=== PATIENT | male | born 1950 | race Caucasian/White ===

== ENCOUNTER 2018-09-26 09:16 | Inpatient (IN) | payer OTHER, BC ==
[2018-09-26 09:59] LABS: ADD MAN DIFF? NO
[2018-09-26 10:01] LABS: BASOPHILS % 0.3 % (0.0-2.0); EOSINOPHILS % 0.4 % (0.0-7.0); HEMATOCRIT 31.2 % (42.0-52.0); HEMOGLOBIN 11.2 g/dl (14.0-18.0); LYMPHOCYTES % 10.7 % (15.0-51.0); MEAN CORPUSCULAR HEMOGLOBIN 30.2 pg (29.0-33.0); MEAN CORPUSCULAR HGB CONC 35.9 g/dl (32.0-37.0); MEAN CORPUSCULAR VOLUME 84.1 fl (82.0-101.0); MEAN PLATELET VOLUME 8.6 fl (7.4-10.4); MONOCYTE # 0.9 10^3/ul (0.3-0.9); MONOCYTES % 9.1 % (0.0-11.0); NEUTROPHIL # 7.4 10^3/ul (1.6-7.5); PLATELET COUNT 248 10^3/UL (140-415); RED BLOOD COUNT 3.71 10^6/ul (4.70-6.10); RED CELL DISTRIBUTION WIDTH 12.7 % (11.5-14.5)
[2018-09-26 10:01] LABS: WHITE BLOOD COUNT 9.4 10^3/ul (4.8-10.8)
[2018-09-26 10:19] LABS: ALANINE AMINOTRANSFERASE 17 IU/L (13-69); ALBUMIN 4.3 g/dl (3.3-4.9); ALBUMIN/GLOBULIN RATIO 1.48; ALKALINE PHOSPHATASE 135 IU/L (42-121); ANION GAP 17 (5-13); ASPARTATE AMINO TRANSFERASE 17 IU/L (15-46); BILIRUBIN,INDIRECT 0.6 mg/dl (0-1.1); BILIRUBIN,TOTAL 0.6 mg/dl (0.2-1.3); BLOOD UREA NITROGEN 11 mg/dl (7-20); CALCIUM 8.6 mg/dl (8.4-10.2); CARBON DIOXIDE 24 mmol/L (21-31); CHLORIDE 86 mmol/L (97-110); CREATININE 0.63 mg/dl (0.61-1.24); Estimated GFR > 60 mL/min (>60); GLUCOSE 191 mg/dl (70-220); POTASSIUM 4.5 mmol/L (3.5-5.1); SODIUM 127 mmol/L (135-144); TOTAL PROTEIN 7.2 g/dl (6.1-8.1)
[2018-09-26 10:31] LABS: B-TYPE NATRIURETIC PEPTIDE 1070 PG/ML (0-125); TROPONIN-I < 0.012 ng/ml (0.000-0.120)
[2018-09-26] MEDS: CEFTRIAXONE 1 GM/50 ML (PMX) 50 ML IVPB (11:14)
[2018-09-26] MEDS: FUROSEMIDE 40 MG INJ IV ×2 (11:14→18:02)
[2018-09-26] MEDS: AZITHROMYCIN 500MG/NS (PMX) 250 ML IV (12:34)
[2018-09-26] MEDS ORDERED: ONDANSETRON 4 MG INJ IV ×2 (13:00→14:00)
[2018-09-26] MEDS ORDERED: ACETAMINOPHEN 325 MG TAB PO ×2 (13:00→14:00)
[2018-09-26] MEDS ORDERED: HYDROCODONE/APAP (5/325) TAB PO (14:00)
[2018-09-26] MEDS ORDERED: NACL 0.9% 3 ML SYG IV (14:00)
[2018-09-26] MEDS ORDERED: DOCUSATE SODIUM 100 MG CAP PO (14:00)
[2018-09-26] MEDS ORDERED: CEFTRIAXONE 1 GM/50 ML (PMX) 50 ML IVPB (14:00)
[2018-09-26 15:51] LABS: CREATINE KINASE 67 IU/L (23-200)
[2018-09-26 16:04] LABS: CK INDEX 1.8; CK-MB 1.23 ng/ml (0.0-2.4); TROPONIN-I < 0.012 ng/ml (0.000-0.120)
[2018-09-26] MEDS: INSULIN ASPART [NOVOLOG] 3 ML PEN SC ×3 (17:40→21:10)
[2018-09-26] MEDS: INSULIN GLARGINE [LANTus] (100 UNITS/ML) SYG SC ×2 (20:00→22:00)
[2018-09-26] MEDS: ATORVASTATIN 80 MG TAB PO (21:05)
[2018-09-26] MEDS: METOPROLOL 50 MG TAB PO (21:05)
[2018-09-26 22:06] LABS: CREATINE KINASE 89 IU/L (23-200)
[2018-09-26 22:18] LABS: CK INDEX 1.5; TROPONIN-I < 0.012 ng/ml (0.000-0.120)
[2018-09-26] MEDS: OXYMETAZOLINE 0.05% 15 ML NAS SPRAY NASAL (22:56)
[2018-09-26] MEDS: FLUTICASONE 0.05% 16 GM NAS SPRAY NASAL (22:56)
[2018-09-27] MEDS: ACCU-CHEK XX (02:00)
[2018-09-27] MEDS: FUROSEMIDE 40 MG INJ IV ×2 (05:36→17:13)
[2018-09-27 06:39] LABS: ADD MAN DIFF? NO
[2018-09-27 06:50] LABS: BASOPHILS % 0.3 % (0.0-2.0); EOSINOPHILS # 0.1 10^3/ul (0.0-0.5); EOSINOPHILS % 0.9 % (0.0-7.0); HEMATOCRIT 29.9 % (42.0-52.0); HEMOGLOBIN 10.7 g/dl (14.0-18.0); LYMPHOCYTES % 11.4 % (15.0-51.0); MEAN CORPUSCULAR HGB CONC 35.8 g/dl (32.0-37.0); MEAN CORPUSCULAR VOLUME 83.8 fl (82.0-101.0); MONOCYTE # 1.1 10^3/ul (0.3-0.9); MONOCYTES % 12.1 % (0.0-11.0); NEUTROPHIL # 6.6 10^3/ul (1.6-7.5); NEUTROPHILS % 74.8 % (39.0-77.0); PLATELET COUNT 245 10^3/UL (140-415); RED BLOOD COUNT 3.57 10^6/ul (4.70-6.10); RED CELL DISTRIBUTION WIDTH 12.9 % (11.5-14.5)
[2018-09-27 06:50] LABS: WHITE BLOOD COUNT 8.8 10^3/ul (4.8-10.8)
[2018-09-27 07:33] LABS: ALANINE AMINOTRANSFERASE 26 IU/L (13-69); ALBUMIN 3.7 g/dl (3.3-4.9); ALBUMIN/GLOBULIN RATIO 1.37; ALKALINE PHOSPHATASE 138 IU/L (42-121); ANION GAP 13 (5-13); ASPARTATE AMINO TRANSFERASE 21 IU/L (15-46); BILIRUBIN,INDIRECT 0.5 mg/dl (0-1.1); BILIRUBIN,TOTAL 0.5 mg/dl (0.2-1.3); BLOOD UREA NITROGEN 16 mg/dl (7-20); CALCIUM 8.4 mg/dl (8.4-10.2); CARBON DIOXIDE 27 mmol/L (21-31); CHLORIDE 88 mmol/L (97-110); CHOL/HDL RATIO 2.3 RATIO; CHOLESTEROL 105 mg/dl (100-200); CREATININE 0.72 mg/dl (0.61-1.24); Estimated GFR > 60 mL/min (>60); GLUCOSE 163 mg/dl (70-220); HDL CHOLESTEROL 44 mg/dl (31-75); LDL CHOLESTEROL,CALCULATED 52 mg/dl; MAGNESIUM 1.9 mg/dl (1.7-2.5); POTASSIUM 4.2 mmol/L (3.5-5.1); SODIUM 128 mmol/L (135-144); TOTAL PROTEIN 6.4 g/dl (6.1-8.1); TRIGLYCERIDES 45 mg/dl (0-149)
[2018-09-27] MEDS: INSULIN ASPART [NOVOLOG] 3 ML PEN SC ×7 (07:52→21:00)
[2018-09-27] MEDS: LISINOPRIL 20 MG TAB PO (08:09)
[2018-09-27] MEDS: ASPIRIN 81 MG TAB PO (08:09)
[2018-09-27] MEDS: FLUTICASONE 0.05% 16 GM NAS SPRAY NASAL ×2 (08:10→21:06)
[2018-09-27] MEDS: METOPROLOL 50 MG TAB PO ×2 (08:10→21:06)
[2018-09-27] MEDS: ENOXAPARIN 40 MG/0.4 ML SYG SC (08:14)
[2018-09-27] MEDS ORDERED: AZITHROMYCIN 500 MG in SOD CHLORIDE 0.9% 250 ML IVPB (09:00)
[2018-09-27] MEDS: CEFTRIAXONE 1 GM/50 ML (PMX) 50 ML IVPB (11:03)
[2018-09-27] MEDS: AZITHROMYCIN 500 MG in SOD CHLORIDE 0.9% 250 ML IVPB (13:34)
[2018-09-27 14:37] LABS: OSMOLALITY 258 mOsm/kg (280-295)
[2018-09-27 16:15] LABS: OSMOLALITY,URINE 487 mOsm/kg (250-1200)
[2018-09-27 16:21] LABS: SODIUM,URINE RANDOM < 13 mmol/L (30-90)
[2018-09-27] MEDS: INSULIN GLARGINE [LANTus] (100 UNITS/ML) SYG SC (21:19)
[2018-09-27] MEDS: ATORVASTATIN 40 MG TAB PO (21:19)
[2018-09-28] MEDS: ACCU-CHEK XX ×2 (02:00)
[2018-09-28] MEDS: FUROSEMIDE 40 MG INJ IV ×2 (06:21→14:24)
[2018-09-28 07:05] LABS: ADD MAN DIFF? NO
[2018-09-28 07:10] LABS: BASOPHILS % 0.5 % (0.0-2.0); EOSINOPHILS # 0.1 10^3/ul (0.0-0.5); EOSINOPHILS % 1.4 % (0.0-7.0); HEMOGLOBIN 10.5 g/dl (14.0-18.0); LYMPHOCYTES # 1.6 10^3/ul (0.8-2.9); LYMPHOCYTES % 18.8 % (15.0-51.0); MEAN CORPUSCULAR HGB CONC 32.8 g/dl (32.0-37.0); MEAN CORPUSCULAR VOLUME 94.4 fl (82.0-101.0); MONOCYTE # 0.9 10^3/ul (0.3-0.9); MONOCYTES % 11.1 % (0.0-11.0); NEUTROPHIL # 5.7 10^3/ul (1.6-7.5); NEUTROPHILS % 67.8 % (39.0-77.0); PLATELET COUNT 236 10^3/UL (140-415); RED BLOOD COUNT 3.39 10^6/ul (4.70-6.10)
[2018-09-28 07:10] LABS: WHITE BLOOD COUNT 8.4 10^3/ul (4.8-10.8)
[2018-09-28 07:50] LABS: ANION GAP 10 (5-13); BLOOD UREA NITROGEN 20 mg/dl (7-20); CALCIUM 8.4 mg/dl (8.4-10.2); CARBON DIOXIDE 26 mmol/L (21-31); CHLORIDE 91 mmol/L (97-110); CREATININE 0.65 mg/dl (0.61-1.24); Estimated GFR > 60 mL/min (>60); GLUCOSE 93 mg/dl (70-220); POTASSIUM 3.8 mmol/L (3.5-5.1); SODIUM 127 mmol/L (135-144)
[2018-09-28] MEDS: INSULIN ASPART [NOVOLOG] 3 ML PEN SC ×4 (07:55→11:29)
[2018-09-28] MEDS ORDERED: FUROSEMIDE 40 MG TAB PO (08:00)
[2018-09-28] MEDS: ASPIRIN 81 MG TAB PO (08:12)
[2018-09-28] MEDS: LISINOPRIL 20 MG TAB PO (08:12)
[2018-09-28] MEDS: METOPROLOL 50 MG TAB PO (08:13)
[2018-09-28] MEDS: ENOXAPARIN 40 MG/0.4 ML SYG SC (08:19)
[2018-09-28] MEDS: CEFTRIAXONE 1 GM/50 ML (PMX) 50 ML IVPB (11:18)
[2018-09-28] MEDS: AZITHROMYCIN 500 MG in SOD CHLORIDE 0.9% 250 ML IVPB (12:07)
== END 2018-09-28 15:33 | disposition home or self-care (01) | DRG 291 ==
LOC: E/R 09:16 → TEL 12:54
DX: I11.0 Hypertensive heart disease with heart failure (principal); J18.9 Pneumonia, unspecified organism; E87.1 Hypo-osmolality and hyponatremia; I50.43 Acute on chronic combined systolic (congestive) and diastolic (congestive) heart failure; I42.9 Cardiomyopathy, unspecified; D64.9 Anemia, unspecified; E11.9 Type 2 diabetes mellitus without complications; Z95.1 Presence of aortocoronary bypass graft; E66.9 Obesity, unspecified; I25.10 Atherosclerotic heart disease of native coronary artery without angina pectoris; E78.5 Hyperlipidemia, unspecified; E02 Subclinical iodine-deficiency hypothyroidism; I25.2 Old myocardial infarction; Z68.34 Body mass index [BMI] 34.0-34.9, adult; Z79.4 Long term (current) use of insulin; Z79.84 Long term (current) use of oral hypoglycemic drugs; Z79.82 Long term (current) use of aspirin; Z91.19 Patient's noncompliance with other medical treatment and regimen; Z98.61 Coronary angioplasty status
CPT/HCPCS: 36415; 71045; 71250; 80048; 80053; 80061; 82550; 82553; 82962; 83036; 83735; 83880; 83930; 83935; 84300; 84439; 84443; 84484; 85025; 87040; 93005; 93306; 96374; 96375; 99285-25